=== PATIENT | female | born 1995 | race Caucasian/White ===

== ENCOUNTER 2018-09-23 12:53 | Emergency (ER) | payer MEDICAID ==
[~2018-09-23] VITALS: Ht 160 cm; Wt 47.7 kg
[2018-09-23] MEDS ORDERED: AMOX-422 PO (14:05)
[2018-09-23 14:27] VITALS: BP 132/88
== END 2018-09-23 14:28 | disposition home or self-care (01) ==
LOC: ER 12:54
DX: H66.92 Otitis media, unspecified, left ear (principal); J02.9 Acute pharyngitis, unspecified; R53.83 Other fatigue; R42 Dizziness and giddiness; R50.9 Fever, unspecified; R09.81 Nasal congestion; R05 Cough; R06.7 Sneezing; Z88.8 Allergy status to other drugs, medicaments and biological substances
CPT/HCPCS: 99283

== ENCOUNTER 2020-01-05 10:57 | Emergency (ER) | payer MEDICAID ==
[2020-01-05 11:23] VITALS: BP 125/77
[2020-01-05 11:24] LABS: BASOPHILS % (AUTO) 0.6 % (0-1); EOSINOPHILS # (AUTO) 0.2 X10'3 (0-0.9); EOSINOPHILS % (AUTO) 2.8 % (0-6); HEMATOCRIT 41.8 % (35.0-45.0); HEMOGLOBIN 14.1 g/dl (12.0-16.0); LYMPHOCYTES # (AUTO) 2.4 X10'3 (1.1-4.8); LYMPHOCYTES % (AUTO) 32.4 % (21-51); MEAN CORPUSCULAR HEMOGLOBIN 29.5 PG (27.0-31.0); MEAN CORPUSCULAR HGB CONC 33.8 g/dL (33.0-36.5); MEAN CORPUSCULAR VOLUME 87.3 FL (78-98); MEAN PLATELET VOLUME 7.9 FL (7.4-10.4); MONOCYTES # (AUTO) 0.7 X10'3 (0-0.9); MONOCYTES % (AUTO) 9.6 % (2-12); NEUTROPHILS # (AUTO) 4.1 X10'3 (1.8-7.7); NEUTROPHILS % (AUTO) 54.6 % (42-75); PLATELET COUNT 218 X10'3 (140-440); RED BLOOD COUNT 4.78 X10'6 (4.20-5.60); RED CELL DISTRIBUTION WIDTH 13.5 % (11.5-14.5); WHITE BLOOD COUNT 7.5 X10'3 (4.5-11.0)
[2020-01-05 11:39] LABS: ALANINE AMINOTRANSFERASE 23 U/L (12-78); ALBUMIN/GLOBULIN RATIO 1.3 (1.1-1.5); ALKALINE PHOSPHATASE 67 IU/L (46-116); ANION GAP 8 (8-16); ASPARTATE AMINO TRANSFERASE 17 U/L (10-37); BLOOD UREA NITROGEN 13 MG/DL (7-18); BUN/CREATININE RATIO 17.6 (6.6-38.0); CALCIUM 8.6 MG/DL (8.5-10.1); CHLORIDE 104 MMOL/L (99-107); CREATININE 0.74 MG/DL (0.40-0.90); GLUCOSE 68 MG/DL (70-104); LIPASE 260 U/L (73-393); POTASSIUM 3.9 MMOL/L (3.5-5.1); SODIUM 138 MMOL/L (135-145); TOTAL CARBON DIOXIDE 26.5 MMOL/L (24-32); TOTAL PROTEIN 7.2 G/DL (6.4-8.2); eGFR > 90 ML/MIN
[2020-01-05 11:53] LABS: CLARITY,URINE SLIGHTLY CLOUDY (Clear); COLOR,URINE YELLOW (Yellow); GLUCOSE, URINE NEGATIVE (Neg); KETONES,URINE NEGATIVE (Neg); LEUKOCYTE ESTERASE ,URINE NEGATIVE (Neg); NITRITES, URINE NEGATIVE (Neg); OCCULT BLOOD,URINE SMALL (Neg); PROTEIN,URINE NEGATIVE (Neg)
[2020-01-05 11:54] LABS: UA COLLECTION TYPE CLN CATCH MIDSTREAM
[2020-01-05 11:55] LABS: URINE HCG NEGATIVE (NEG)
[2020-01-05 11:59] LABS: MUCUS STRANDS MODERATE /LPF (Neg); SQUAMOUS EPITHELIAL CELL,UR MANY /LPF (FEW)
[2020-01-05] MEDS ORDERED: LIDOcaine Viscous 15ml cup TP ONE (12:00)
[2020-01-05] MEDS ORDERED: mag hydrox/Alum hydrox/simeth 30ml oral suspension PO ONE (12:00)
[2020-01-05 12:01] LABS: BACTERIA,URINE 1+ /HPF (Neg); WBC,URINE 0-4 /HPF (0-4)
[2020-01-05] MEDS ORDERED: OMEP40CA13 PO (12:24)
== END 2020-01-05 12:38 | disposition home or self-care (01) ==
LOC: ER 10:58
DX: R10.13 Epigastric pain (principal); R10.84 Generalized abdominal pain; R07.81 Pleurodynia; Z88.8 Allergy status to other drugs, medicaments and biological substances; Z79.899 Other long term (current) drug therapy
CPT/HCPCS: 36415; 80053; 81001; 81025; 83690; 85025; 99283

== ENCOUNTER → 2025-04-05 | Emergency (ER) | payer MEDICAID ==
[~2025-04-05] VITALS: Ht 160 cm; Wt 58.3 kg
[2025-04-05 13:39] VITALS: TEMP 97
[2025-04-05 15:26] LABS: MEAN PLATELET VOLUME 7.5 FL (7.4-10.4); RED CELL DISTRIBUTION WIDTH 13.1 % (11.5-14.5)
[2025-04-05 15:29] LABS: URINE HCG NEGATIVE (NEG)
[2025-04-05 15:31] LABS: LEUKOCYTE ESTERASE ,URINE NEGATIVE (Neg); NITRITES, URINE NEGATIVE (Neg); OCCULT BLOOD,URINE NEGATIVE (Neg)
[2025-04-05 15:35] LABS: CREATININE 0.70 MG/DL (0.40-0.90); TOTAL CARBON DIOXIDE 30.9 MMOL/L (24-32); eCRCL 100 ML/MIN; eGFR > 90 ML/MIN
[2025-04-05 15:36] LABS: UA COLLECTION TYPE VOIDED
--- NOTE | 2025-04-05 16:05 | RADIOLOGY REPORT ---
COMPUTERIZED TOMOGRAPHY OF THE CERVICAL SPINE, NONCONTRAST REASON FOR EXAM: Pain, mid-spine tenderness COMPARISON: None TECHNIQUE: CT of the entire cervical spine was performed in routine fashion with sagittal and harrell l reconstructions. Soft tissues and bone windows were filmed. Radiation optimization: All CT scans a t this facility use at least one of these dose optimization techniques: Automated exposure control mA and/or kV adjustment per patient size (includes targeted exams where dose is matched to clinical ind ication) or iterative reconstruction. RADIATION DOSE: CTDI: 18 mGy DLP: 391 mGy-cm FINDINGS: The vertebral bodies are normal in height and alignment with no evidence of fracture. Ther e is partial visualization of posterior spinal fixation hardware beginning at T3 and downward. There is reversal of the normal cervical lordosis which may be secondary to patient positioning or muscular spasm. No acute fracture is identified. Intervertebral disc height is grossly maintained. There is n o listhesis. The prevertebral soft tissues are unremarkable. The visualized lung apices are within n ormal limits. No pathologic lymphadenopathy is identified. IMPRESSION: No evidence of acute fracture or subluxation in the cervical spine. Reversal of the normal cervical lordosis may be secondary to patient positioning or muscular spasm. Correlate clinically.
[2025-04-05] MEDS: ketorolac trometh 15mg/ml vial 15 MG/ML ML IM ONE (16:09)
--- NOTE | 2025-04-05 16:51 | Physician Documentation ---
History of Present Illness ~ Chief Complaint: Neck pain Stated Complaint: FLU SYMPTOMS Time Seen by MD: 14:37 Primary Medical Doctor: None HPI Patient is a 29-year-old female that presents to the emergency department for evaluation of neck pain x2 days. Patient is well-appearing denies headache fevers chills nausea vomiting diarrhea. Patient does report that she has been congested for approximately a week but feeling better. Patient reports that she experienced a violent sneeze 2 days ago since that time her neck has been bothering her. Patient reports she is unable to move her neck from side to side to the back or tip of forward without tenderness or pain. Patient denies taking Tylenol or ibuprofen for discomfort. Patient denies any other symptoms at this time. Medication Reconciliation Allergies: Coded Allergies: nitrofurantoin (Verified Allergy, Unknown, HIVES, 04/05/25) Past Medical History Past Medical History: No Pertinent History Past Surgical History: other Alcohol Use: None Drug Use: none Lives with: Family Lives In: Home Occupation: employed Review of Systems ROS As stated above in the HPI, otherwise all systems are reviewed and negative. Physical Exam Vital Signs: Temperature: 97.0, Source: Temporal, Heart Rate: 71, Respiratory Rate: 16, BP: 107/75, Pulse Oximetry: 100, Weight: 58.300 Physical Exam VITALS: Reviewed and as above. GENERAL: Alert, no apparent distress. HEENT: Normocephalic, atraumatic, PERRL, EOMI, dry mucosa, no erythema RESPIRATORY: Lungs clear, normal breath sounds, no respiratory distress. CHEST: No accessory muscle use, no retractions CV: Regular rate, rhythm, no edema, no murmur, No: JVD GI: Soft, non-tender, bowels sounds present, no rebound, guarding, or rigidity BACK: No CVA tenderness, or swelling MUSCULOSKELETAL No deformities, no edema, pain at the cervical spine that radiates down to bilateral shoulders with movement. Mild focal tenderness with palpation. SKIN: Warm and dry, no rash NEURO: Oriented x4, No motor or sensory deficit PSYCH: Normal mood and affect, no agitation Progress Results/Orders Results/Orders Orders - MIMI MACP Ct Cervical Spine (04/05/25 14:49) Completed Orders - MIMI MACP Cbc/Diff (04/05/25 14:49) CMP (8/30/25 14:49) Urinalysis, Cult If Indicated (04/05/25 14:49) Hcg, Ur Ql (04/05/25 14:49) Ct Cervical Spine (04/05/25 14:49) Ketorolac Trometh 15mg/Ml Vial (Toradol (04/05/25 15:45) Medications Received in ER Medications (Trade) Dose Ordered Sig/Cristofer Route PRN Reason Start Time Stop Time Status Last Admin Dose Admin (Toradol injection) 15 mg ONCE ONCE IM 04/05/25 15:45 04/05/25 15:46 DC 04/05/25 16:09 15 MG Vital Signs 04/05/25 04/05/25 04/05/25 13:39 15:05 16:09 Temp 97.0 Pulse 72 71 Resp 16 14 16 B/P (MAP) 139/78 107/75 (86) Pulse Ox 97 100 Laboratory Tests Test 04/05/25 13:42 04/05/25 15:04 04/05/25 15:11 SARS-CoV-2 Antigen (Rapid) Negative Urine Specimen Description Voided Urine Color Yellow Urine Clarity Clear Urine pH 7.5 Urine Specific [place] 1.015 Urine Protein Negative Urine Glucose (UA) Negative Urine Ketones Negative Urine Occult Blood Negative Urine Nitrite Negative Urine Bilirubin Negative Urine Urobilinogen 1.0 Urine Leukocyte Esterase Negative Urine Culture Indicated Not ind Volume Urine Centrifuged 10 ml Urine HCG, Qualitative Negative Urine Comment White Blood Count 9.5 Red Blood Count 4.97 Hemoglobin 14.1 Hematocrit 42.0 Mean Corpuscular Volume 84.5 Mean Corpuscular Hemoglobin 28.4 Mean Corpuscular Hemoglobin Concent 33.6 Red Cell Distribution Width 13.1 Platelet Count 309 Mean Platelet Volume 7.5 Neutrophils (%) (Auto) 61.6 Lymphocytes (%) (Auto) 29.0 Monocytes (%) (Auto) 7.0 Eosinophils (%) (Auto) 1.8 Basophils (%) (Auto) 0.6 Neutrophils # (Auto) 5.8 Lymphocytes # (Auto) 2.8 Monocytes # (Auto) 0.7 Eosinophils # (Auto) 0.2 Basophils # (Auto) 0.1 CBC Comment Sodium Level 140 Potassium Level 3.7 Chloride Level 102 Carbon Dioxide Level 30.9 Anion Gap 7 L Blood Urea Nitrogen 10 Creatinine 0.70 Estimated GFR/1.73 m2 > 90 BUN/Creatinine Ratio 14.3 Glucose Level 90 Calcium Level 8.6 Total Bilirubin 0.5 Aspartate Amino Transf (AST/SGOT) 12 Alanine Aminotransferase (ALT/SGPT) 23 Alkaline Phosphatase 94 Total Protein 8.0 Albumin 4.2 Globulin 3.8 Albumin/Globulin Ratio 1.1 Chemistry Comments Medical Decision Making Findings This patient presents with back pain most consistent with musculoskeletal spasm/strain of the cervical spine radiating into shoulders with turning of her head to the left in the right.No back pain red flags on history or physical. Presentation not consistent with malignancy (lack of history of malignancy, lack of B symptoms), fracture (no trauma, no bony tenderness to palpation), transverse myelitis, (no sensory loss, no distal weakness), thoracic aortic dissection (equal peripheral pulses, no tachycardia, story does not fit), pneumonia (afebrile, no infectious symptoms), pulmonary embolism (Wells low risk), osteomyelitis or epidural abscess. CT of the cervical spine is negative. Patient given Toradol with improvement in symptoms. Patient now able to rotate head with less discomfort. Patient again appears well at this time. Patient will follow up with her primary care provider. Patient will return to the emergency department with any worsening or recurrent symptoms or any additional concerning symptoms that we discussed here today i.e. headaches fever dizziness nausea vomiting difficulty with ambulation or any other concerning symptoms. Differential Dx:Considerations: Include: Cervical muscle spasm, Discitis, DJD, Meningitis, Thyroiditis, Torticollis, Vertebral artery dissect., Other Departure Disposition: 01 HOME / SELF CARE / HOMELESS Impression: Primary Impression: Neck pain Additional Impressions: Strain of neck muscle Cervical radiculopathy Condition: Stable Additional Instructions: This patient presents with back pain most consistent with musculoskeletal spasm/strain of the cervical spine radiating into shoulders with turning of her head to the left in the right.No back pain red flags on history or physical. Presentation not consistent with malignancy (lack of history of malignancy, lack of B symptoms), fracture (no trauma, no bony tenderness to palpation), transverse myelitis, (no sensory loss, no distal weakness), thoracic aortic dissection (equal peripheral pulses, no tachycardia, story does not fit), pneumonia (afebrile, no infectious symptoms), pulmonary embolism (Wells low risk), osteomyelitis or epidural abscess. CT of the cervical spine is negative. Patient given Toradol with improvement in symptoms. Patient now able to rotate head with less discomfort. Patient again appears well at this time. Patient will follow up with her primary care provider. Patient will return to the emergency department with any worsening or recurrent symptoms or any additional concerning symptoms that we discussed here today i.e. headaches fever dizziness nausea vomiting difficulty with ambulation or any other concerning symptoms. Education Educated: Patient Educated regarding: diagnosis, treatment, need for follow up Signature Scribe Signature: A Attestation: Scribed for Mimi Mac by AMEE Tello . 04/05/25 16:56 MIMI MAC Apr 05, 2025 16:51
[2025-04-05 17:44] VITALS: BP 120/78; PULSE 58; RESP 18; O2SAT 97
== END | disposition home or self-care (01) ==
LOC: ER 13:32
DX: S16.1XXA Strain of muscle, fascia and tendon at neck level, initial encounter (principal); M54.12 Radiculopathy, cervical region; Z20.822 Contact with and (suspected) exposure to COVID-19; Z88.1 Allergy status to other antibiotic agents; X58.XXXA Exposure to other specified factors, initial encounter; Y92.89 Other specified places as the place of occurrence of the external cause; Y93.89 Activity, other specified; Y99.8 Other external cause status
CPT/HCPCS: 36415; 72125; 80053; 81003; 81025; 85025; 87811; 96372; 99285; J1885

== ENCOUNTER 2025-06-18 18:25 | Emergency (ER) | payer MEDICAID ==
[2025-06-18 18:29] VITALS: BP 140/82; PULSE 65; RESP 15; O2SAT 98
--- NOTE | 2025-06-18 21:03 | Physician Documentation ---
History of Present Illness ~ Chief Complaint: Headache Stated Complaint: HEADACHE Time Seen by MD: 19:04 Primary Medical Doctor: None HPI Patient is a very pleasant 30-year-old female that presents to the emergency department for headaches x3 weeks. Patient reports that she has had very few days without headaches. Patient reports that Excedrin only works temporarily. In the headaches return. Patient denies any recent illness trauma no visual changes no nausea vomiting fever chills diarrhea. Patient reports that she has not tried any medication to help with the headache today. No other symptoms reported at this time. Medication Reconciliation Allergies: Coded Allergies: nitrofurantoin (Verified Allergy, Unknown, HIVES, 06/18/25) Past Medical History Past Medical History: No Pertinent History Past Surgical History: other Alcohol Use: None Drug Use: none Lives with: Family Lives In: Home Occupation: employed Review of Systems ROS As stated above in the HPI, otherwise all systems are reviewed and negative. Physical Exam Vital Signs: Temperature: 96.8, Source: Temporal, Heart Rate: 65, Respiratory Rate: 15, BP: 140/82, Pulse Oximetry: 98 Physical Exam VITALS: Reviewed and as above. GENERAL: Alert, no apparent distress. HEENT: Normocephalic, atraumatic, PERRL, EOMI, dry mucosa, no erythema RESPIRATORY: Lungs clear, normal breath sounds, no respiratory distress. CHEST: No accessory muscle use, no retractions CV: Regular rate, rhythm, no edema, no murmur, No: JVD GI: Soft, non-tender, bowels sounds present, no rebound, guarding, or rigidity BACK: No CVA tenderness, or swelling MUSCULOSKELETAL No deformities, no edema SKIN: Warm and dry, no rash NEURO: Oriented x4, No motor or sensory deficit PSYCH: Normal mood and affect, no agitation Progress Results/Orders Results/Orders Vital Signs 06/18/25 18:29 Temp 96.8 Pulse 65 Resp 15 B/P (MAP) 140/82 Pulse Ox 98 Medical Decision Making Additional information obtaine: other Findings 30-year-old female presented with headaches for three weeks, described as frequent and recurrent, with only temporary relief from Excedrin. She denied red flag symptoms including recent illness, trauma, visual changes, nausea, vomiting, fever, chills, or diarrhea. No medication was taken today, and she declined ED-administered analgesics. Assessment: Headache characteristics and absence of concerning features suggest a primary headache disorder, most likely tension-type headache (TTH) or migraine, given chronicity and partial response to OTC analgesics. No evidence of secondary headache based on history and physical exam; no red flags. No acute neurological deficits or systemic symptoms. Medical Decision-Making: No emergent imaging or laboratory evaluation indicated at this time. Patient educated on medication overuse headache (MOH), which can result from frequent use of analgesics, especially combination products like Excedrin. Recommended acute management with acetaminophen (up to 1000 mg), ibuprofen (up to 400 mg), or Excedrin, limiting use to ?2 days per week to reduce MOH risk. Advised to stay hydrated and maintain a headache diary to track frequency, duration, triggers, and response to interventions. Discussed lifestyle modifications: regular sleep, meals, hydration, stress management, and use of corrective lenses as needed. No preventive therapy initiated at this time; will consider if headaches become more frequent or disabling. Disposition: Discharged in stable condition. Return precautions reviewed: advised to seek care for new focal neurological deficits, sudden severe headache, visual changes, fever, or other concerning symptoms. Outpatient follow-up recommended for reassessment and consideration of preventive therapy if symptoms persist or worsen. Shared decision-making documented; patient agreeable to outpatient management and self-monitoring. Differential Dx:Considerations: Include: BOOKER-Cluster, BOOKER-Migraine, BOOKER- Hypertensive, BOOKER-Muscular contraction, BOOKER-Post lumbar puncture, Carbon monoxide toxicity, Close head injuyr, CVA, Fever induced, Hemorrhage-Epidural, Hemorrhage-Intracerebral, Hemorrhage-Subarachnoid, Hemorrhage-Subdural, Mass lesion, Meningitis, Post-traumtic, Pseudotumor cerebri, Sinusitis, Temporal arteritis, Trigeminal neuralgia, Other Departure Impression: Primary Impression: Headache Condition: Stable Discharge Instructions: Headache Additional Instructions: You came to the emergency department because of headaches that have lasted for about three weeks. Here are your discharge instructions: Medicines for headache relief: You may use acetaminophen (Tylenol), ibuprofen (Advil, Motrin), or Excedrin as needed for pain. These medicines are considered safe while when used as directed. Do not use more than the recommended dose on the package. Try not to use headache medicines more than two days per week to avoid medication overuse headaches. Hydration: Drink plenty of fluids throughout the day, especially since you are . Staying hydrated can help reduce headaches. Headache diary: Keep a log of your headaches. Write down when they start and stop, what you were doing, what helped or did not help, and if you were wearing your glasses or using bright screens. This can help you and your doctor find patterns and triggers. Screen time: Try to take breaks from your phone and other screens, as long periods of screen use can sometimes make headaches worse. When to return: Come back to the emergency department if you have any new or worsening symptoms, such as sudden severe headache, vision changes, weakness, numbness, fever, or if your headaches do not get better with medicine and increased fluids. Follow-up: If your headaches continue or get worse, make an appointment with your primary care provider for further evaluation and management. If you have any questions or concerns, do not hesitate to seek medical care. Referrals: NO PRIMARY CARE PROVIDER (PCP) Education Educated: Patient Educated regarding: diagnosis, treatment, need for follow up Signature Scribe Signature: A Attestation: Scribed for Noel Mac by AMEE Tello . 06/18/25 21:08 NOEL MAC Jun 18, 2025 21:03
[2025-06-18 21:13] VITALS: TEMP 96.8
== END 2025-06-18 21:16 | disposition home or self-care (01) ==
LOC: ER 18:26
DX: R51.9 Headache, unspecified (principal); Z88.1 Allergy status to other antibiotic agents
CPT/HCPCS: 99282